=== PATIENT | female | born 1985 | race Caucasian/White ===

== ENCOUNTER 2017-07-07 10:59 | Inpatient (IN) | payer MEDICAID ==
[2017-07-07] MEDS ORDERED: Sodium Chloride 0.9% 10 ML Syringe FLUSH PRN (11:33)
[2017-07-07] MEDS ORDERED: Ondansetron 4 MG/2 ML SDV IVPUSH PRN ×2 (11:33→12:38)
[2017-07-07] MEDS ORDERED: Nalbuphine 20 MG/1 ML Amp IVPUSH PRN (11:33)
--- NOTE | 2017-07-07 11:33 | PCM.LDHP ---
L&D History of Present Illness - General Date of Service: 07/07/17 Admit Problem/Dx: Admission Diagnosis/Problem Admission Diagnosis/Problem Source of Information: Patient History Limitations: Reports: No Limitations - History of Present Illness Introduction:: 32-year-old 014 TOSHIA 07/02/17 now at 40 weeks and 5 days estimated gestational age GBS negative history of ruptured membranes at home and [place] at approximately 0 8:30 are time (09:30 there time) brought to labor and delivery by ambulance. Having irregular contractions. Blood type A positive antibody screen negative rubella negative (needs MMR ) nonreactive hepatitis B surface antigen and HIV normal limited GC negative hemoglobin 11.4 on 03/18/17 platelets 181,001 hour OB glucose screen 83 antibody screen negative Patient's history complicated by previous mesh surgery for hernia repair performed through the laparoscope. Improves with: Reports: None Worsens with: Reports: None Associated Symptoms: Reports: N Past Medical History : 6 Para: 4 ([id number]) H&P Review of Systems - Review of Systems: Review Of Systems: See Below General: Reports: No Symptoms HEENT: Reports: No Symptoms Pulmonary: Reports: No Symptoms Cardiovascular: Reports: No Symptoms Gastrointestinal: Reports: No Symptoms Genitourinary: Reports: No Symptoms Musculoskeletal: Reports: No Symptoms Skin: Reports: No Symptoms Psychiatric: Reports: No Symptoms Neurological: Reports: No Symptoms Hematologic/Lymphatic: Reports: No Symptoms Immunologic: Reports: No Symptoms L&D Exam - Exam Exam: See Below - OB Specific Fundal Height In cm: 38 Contraction Duration (sec): Irregular Contraction Frequency (min): Irregular Contraction Intensity: Mild Movement: Active Heart Tones: Present Heart Tones per Min: 130 Heart Rate (FHR) Variability: Moderate (6-25 bmp) Presentation: Vertex - Post Score Post Score Cervix Position: Posterior Post Score Consistency: Soft Post Score Effacement: 31-50% Post Score Dilation: 1-2 cm Post Score 's Station: -2 Post Score Total: 5 - Exam General: Alert, Oriented HEENT: Conjunctiva Clear, Mucosa Moist & [place], PERRLA Neck: Supple, Trachea Midline Lungs: Clear to Auscultation, Normal Respiratory Effort Cardiovascular: Regular Rate, Regular Rhythm GI/Abdominal Exam: Normal Bowel Sounds, Soft, Non-Tender, No Organomegaly, No Distention, No Abnormal Bruit, No Mass, Pelvis Stable Genitourinary: Normal external exam, Normal bimanual exam, Normal speculum exam Extremities: Normal Inspection, Normal Range of Motion, Non-Tender, No Pedal Edema, Normal Capillary Refill Skin: Warm, Dry, Intact Psychiatric: Alert, Normal Affect, Normal Mood - Problem List (1) 40 weeks gestation of SNOMED Code(s): 10128827 ICD Code: Z3A.40 - 40 WEEKS GESTATION OF Status: Acute Current Visit: Yes (2) Premature rupture of membranes (PROM) affecting sixth SNOMED Code(s): 14626574, 826622849 ICD Code: O42.90 - LEILA ROM, 7TH0 BETW RUPT & ONST LABR, UNSP WEEKS OF GEST; O09.40 - SUPERVISION OF W GRAND MULTIPARITY, UNSP TRIMESTER Status: Acute Current Visit: Yes (3) History of umbilical hernia repair SNOMED Code(s): 833780025 ICD Code: Z98.890 - OTHER SPECIFIED POSTPROCEDURAL STATES; Z87.19 - PERSONAL HISTORY OF OTHER DISEASES OF THE DIGESTIVE SYSTEM Status: Acute Current Visit: Yes Problem List Initiated/Reviewed/Updated: No Assessment/Plan Comment:: Plan labor and delivery
[2017-07-07] MEDS ORDERED: fentaNYL 100 MCG/2 ML SDV EPIDUR PRN (12:38)
[2017-07-07] MEDS ORDERED: ePHEDrine 50 MG/ML SDV IVPUSH PRN (12:38)
[2017-07-07] MEDS ORDERED: diphenhydrAMINE 50 MG/ML SDV IVPUSH PRN (12:38)
--- NOTE | 2017-07-07 12:44 | PCM.PREANE ---
Preanesthetic Assessment - Procedure Proposed Procedure: Labor Epidural - Anesthesia/Transfusion/Family Hx Anesthesia History: Prior Anesthesia Without Reaction Family History of Anesthesia Reaction: No Transfusion History: No Prior Transfusion(s) Additional History: scoliosis - Review of Systems General: No Symptoms Pulmonary: No Symptoms Cardiovascular: Other Neurological: No Symptoms Other: Reports: Easy Bruising, Depression, Anxiety - Physical Assessment NPO Status Date: 07/06/17 NPO Status Time: 20:00 Respiratory Rate: 16 Vital Signs: Last Vital Signs Temp 36.3 C 07/07/17 11:34 Pulse Resp 16 07/07/17 11:34 BP 127/74 07/07/17 11:34 Pulse Ox Height: 1.65 m Weight: 82.554 kg ASA Class: 2 Mental Status: Alert & Oriented x3 Airway Class: Mallampati = 2 Dentition: Reports: Normal Dentition Thyro-Mental Finger Breadths: 3 Mouth Opening Finger Breadths: 3 ROM/Head Extension: Full Lungs: Clear to Auscultation, Normal Respiratory Effort Cardiovascular: Regular Rate, Regular Rhythm - Lab Values: Laboratory Last Values WBC 6.86 K/mm3 (3.98-10.04) 07/07/17 11:37 RBC 3.88 M/mm3 (3.98-5.22) L 07/07/17 11:37 Hgb 10.7 gm/L (11.2-15.7) L 07/07/17 11:37 Hct 32.6 % (34.1-44.9) L 07/07/17 11:37 MCV 84.0 fl (79.4-94.8) 07/07/17 11:37 MCH 27.6 pg (25.6-32.2) 07/07/17 11:37 MCHC 32.8 g/dl (32.2-35.5) 07/07/17 11:37 RDW Std Deviation 43.0 fL (36.4-46.3) 07/07/17 11:37 Plt Count 153 K/mm3 (182-369) L 07/07/17 11:37 MPV 10.1 fl (9.4-12.3) 07/07/17 11:37 Neut % (Auto) 72.2 % (34.0-71.1) H 07/07/17 11:37 Lymph % (Auto) 19.2 % (19.3-51.7) L 07/07/17 11:37 [place] % (Auto) 8.2 % (4.7-12.5) 07/07/17 11:37 Eos % (Auto) 0.3 (0.7-5.8) L 07/07/17 11:37 Baso % (Auto) 0.0 % (0.1-1.2) L 07/07/17 11:37 Neut # (Auto) 4.95 K/mm3 (1.56-6.13) 07/07/17 11:37 Lymph # (Auto) 1.32 K/mm3 (1.18-3.74) 07/07/17 11:37 [place] # (Auto) 0.56 K/mm3 (0.24-0.36) H 07/07/17 11:37 Eos # (Auto) 0.02 K/mm3 (0.04-0.36) L 07/07/17 11:37 Baso # (Auto) 0.00 K/mm3 (0.01-0.08) L 07/07/17 11:37 Blood Type A POSITIVE 07/07/17 11:37 Gel Antibody Screen Negative 07/07/17 11:37 - Allergies Allergies/Adverse Reactions: Allergies Allergy/AdvReac Type Severity Reaction Status Date / Time Penicillins Allergy Rash Verified 07/07/17 11:57 - Blood Blood Available: No Product(s) Available: None - Anesthesia Plan Pre-Op Medication Ordered: None - Acknowledgements Anesthesia Type Planned: Epidural Pt an Appropriate Candidate for the Planned Anesthesia: Yes Alternatives and Risks of Anesthesia Discussed w Pt/Guardian: Yes Pt/Guardian Understands and Agrees with Anesthesia Plan: Yes PreAnesthesia Questionnaire SYSTEMS MANAGER History: Reports: , Spontaneous Musculoskeletal History: Reports: Arthritis, Other (See Below) Psychiatric History: Reports: Anxiety, Depression Other Psychiatric History: has been on depression meds in the past but doesn't remember what. none recently. hx of suicide attempt when she was a teenager - Past Surgical History GI Surgical History: Reports: Hernia Repair/Other Other GI Surgeries/Procedures: abdominal hernia repair with mesh Other Musculoskeletal Surgeries/Procedures:: scoliosis - SUBSTANCE USE Smoking Status *Q: Former Smoker Tobacco Use Within Last Twelve Months: Cigarettes Second Hand Smoke Exposure: No Recreational Drug Use History: No - HOME MEDS Home Medications: Home Meds Docusate Sodium 100 mg PO BID PRN 07/07/17 [History] Fcg895/FA/Omega3/Dha/Fish Oil [ Gummies] 1 each PO DAILY 07/07/17 [ History] - CURRENT (IN HOUSE) MEDS Current Meds: Current Medications Lactated Ringer's (Ringers, Lactated) 1,000 mls @ 100 mls/hr IV ASDIRECTED KRYSTLE Nalbuphine HCl (Nubain) 10 mg IVPUSH Q2H PRN PRN Reason: Pain (moderate 4-6) Ondansetron HCl (Zofran) 4 mg IVPUSH Q4H PRN PRN Reason: Nausea/Vomiting Sodium Chloride (Saline Flush) 10 ml FLUSH ASDIRECTED PRN PRN Reason: Keep Vein Open
[2017-07-07] MEDS ORDERED: Bupivacaine/fentaNYL/NS 100 ML Bag EPIDUR SCH (12:45)
[2017-07-07] MEDS: Lactated Ringers 1,000 ML IV SCH ×2 (13:00→14:07)
[2017-07-07] MEDS ORDERED: Oxytocin 10 Units/1 ML SDV ONE (14:01)
[2017-07-07] MEDS ORDERED: Oxytocin/Lactated Ringers 10 UNIT/1,000 ML BAG IV ONE (14:02)
[2017-07-07] MEDS ORDERED: Oxytocin 10 Units/1 ML SDV IV ONE (14:09)
[2017-07-07] MEDS ORDERED: Oxytocin/Lactated Ringers 10 UNIT/1,000 ML BAG IV SCH (14:15)
--- NOTE | 2017-07-07 14:58 | PCM.DEL ---
L & D Note - General Info Date of Service: 07/07/17 Mother's Due Date: 07/02/17 - Delivery Note Labor: Spontaneous Delivery Outcome: Livebirth (Male liveborn Saturday07/07/17 at 1440 hrs. YOANA Apgars 8/9 weight 30/6/60 grams 8 pounds 1.1 ounce nuchal cord 1 reduced over the head) Presentation: Left Occiput Anterior (YOANA) Nuchal Cord: Present (Times one reduced over the head) Prep: Povidone-Iodine (Betadine Anesthesia Type: None Amniotic Fluid Description: Clear Episiotomy Type: None Laceration: 1st Degree Suture type: Other (3-0 Monocryl) Suture size: 3-0 Placenta: Intact, Spontaneous (intact, [place], eccentric cord insertion) Cord: 3 Vessels Estimated Blood Loss: 250 [place]: Suctioned, Bulb Syringe, Stimulated, Warmed, [place] Used, Warmer Used Provider: Chun Michelle Score 1 min: 8 Score 5 min: 9 - Patient Data Vitals - Most Recent: Last Vital Signs Temp 97.4 F 07/07/17 11:34 Pulse Resp 16 07/07/17 12:47 BP 127/74 07/07/17 11:34 Pulse Ox Weight - Most Recent: 182 lb Lab Results Last 24 Hours: Laboratory Results - last 24 hr 07/07/17 07/07/17 Range/Units 11:37 11:37 WBC 6.86 (3.98-10.04) K/mm3 RBC 3.88 L (3.98-5.22) M/mm3 Hgb 10.7 L (11.2-15.7) gm/L Hct 32.6 L (34.1-44.9) % MCV 84.0 (79.4-94.8) fl MCH 27.6 (25.6-32.2) pg MCHC 32.8 (32.2-35.5) g/dl RDW Std Deviation 43.0 (36.4-46.3) fL Plt Count 153 L (182-369) K/mm3 MPV 10.1 (9.4-12.3) fl Neut % (Auto) 72.2 H (34.0-71.1) % Lymph % (Auto) 19.2 L (19.3-51.7) % [place] % (Auto) 8.2 (4.7-12.5) % Eos % (Auto) 0.3 L (0.7-5.8) Baso % (Auto) 0.0 L (0.1-1.2) % Neut # (Auto) 4.95 (1.56-6.13) K/mm3 Lymph # (Auto) 1.32 (1.18-3.74) K/mm3 [place] # (Auto) 0.56 H (0.24-0.36) K/mm3 Eos # (Auto) 0.02 L (0.04-0.36) K/mm3 Baso # (Auto) 0.00 L (0.01-0.08) K/mm3 Blood Type A POSITIVE Gel Antibody Screen Negative Med Orders - Current: Current Medications Diphenhydramine HCl (Benadryl) 25 mg IVPUSH Q6H PRN PRN Reason: Pruritis Ephedrine Sulfate (Ephedrine Sulfate) 5 mg IVPUSH ASDIRECTED PRN PRN Reason: Hypotension Fentanyl (Sublimaze) 100 mcg EPIDUR Q3H PRN PRN Reason: Pain Last Admin: 07/07/17 13:09 Dose: 100 mcg Fentanyl/Bupivacaine HCl (Fentanyl/Bupivacaine/Ns 2 Mcg-0.125% 100 Ml) 100 ml EPIDUR ASDIRECTED [facility] Last Admin: 07/07/17 13:09 Dose: 100 ml Lactated Ringer's (Ringers, Lactated) 1,000 mls @ 100 mls/hr IV ASDIRECTED [facility] Last Admin: 07/07/17 14:07 Dose: 100 mls/hr Oxytocin/Lactated Ringer's (Pitocin In Lr 10 Units/1,000 Ml) 10 unit in 1,000 mls @ 500 mls/hr IV ASDIRECTED [facility] Nalbuphine HCl (Nubain) 10 mg IVPUSH Q2H PRN PRN Reason: Pain (moderate 4-6) Ondansetron HCl (Zofran) 4 mg IVPUSH Q4H PRN PRN Reason: Nausea/Vomiting Ondansetron HCl (Zofran) 4 mg IVPUSH ONETIME PRN PRN Reason: Nausea/Vomiting Sodium Chloride (Saline Flush) 10 ml FLUSH ASDIRECTED PRN PRN Reason: Keep Vein Open Discontinued Medications Oxytocin/Lactated Ringer's (Pitocin In Lr 10 Units/1,000 Ml) Confirm Administered Dose 10 unit in 1,000 mls @ as directed IV .STK-MED ONE Stop: 07/07/17 14:03 Oxytocin (Pitocin) Confirm Administered Dose 10 unit .ROUTE .STK-MED ONE Stop: 07/07/17 14:02 Oxytocin (Pitocin) 10 unit IV ONETIME ONE Stop: 07/07/17 14:10 - Problem List & Annotations (1) 40 weeks gestation of SNOMED Code(s): 60997248 Code(s): Z3A.40 - 40 WEEKS GESTATION OF Status: Acute Current Visit: Yes (2) Premature rupture of membranes (PROM) affecting sixth SNOMED Code(s): 11814160, 672271865 Code(s): O42.90 - LEILA ROM, 7TH0 BETW RUPT & ONST LABR, UNSP WEEKS OF GEST; O09.40 - SUPERVISION OF W GRAND MULTIPARITY, UNSP TRIMESTER Status: Acute Current Visit: Yes (3) History of umbilical hernia repair SNOMED Code(s): 892937515 Code(s): Z98.890 - OTHER SPECIFIED POSTPROCEDURAL STATES; Z87.19 - PERSONAL HISTORY OF OTHER DISEASES OF THE DIGESTIVE SYSTEM Status: Acute Current Visit: Yes (4) Nuchal cord, delivered, current hospitalization SNOMED Code(s): 615300219, 769058044 Code(s): O69.81X0 - LABOR AND DEL COMP BY CORD AROUND NECK, W/O COMPRSN, UNSP Status: Acute Current Visit: Yes (5) First degree perineal laceration, delivered, current hospitalization SNOMED Code(s): 457981665 Code(s): O70.0 - FIRST DEGREE PERINEAL LACERATION DURING DELIVERY Status: Acute Current Visit: Yes - Problem List Review Problem List Initiated/Reviewed/Updated: No - My Orders Last 24 Hours: My Active Orders 07/07/17 11:33 Nalbuphine [Nubain] 10 mg IVPUSH Q2H PRN Ondansetron [Zofran] 4 mg IVPUSH Q4H PRN Sodium Chloride 0.9% [Saline Flush] 10 ml FLUSH ASDIRECTED PRN Resuscitation Status Routine 07/07/17 11:34 Patient Status [ADT] Routine Activity as Tolerated [RC] PFP Communication Order [RC] ASDIRECTED Notify Provider [RC] PFP Notify Provider [RC] PRN Peripheral IV Care [RC] . DIRECTED Vital Signs [RC] PER UNIT ROUTINE Electronic Heart Tones Ext w TOCO [WOMSER] Routine Electronic Heart Tones Internal [WOMSER] Per Unit Routine Peripheral IV Insertion Adult [OM.PC] Routine 07/07/17 11:37 PATIENT RETYPE [BBK] Stat TYPE AND SCREEN [BBK] Stat 07/07/17 11:45 Lactated Ringers [Ringers, Lactated] 1,000 ml IV ASDIRECTED 07/07/17 14:15 Oxytocin/Lactated Ringers [Pitocin in LR 10 Units/1,000 ML] 10 unit in 1,000 ml IV ASDIRECTED 07/07/17 Lunch Clear Liquid Diet [DIET] - Plan Plan:: Plan labor and delivery
[2017-07-07] MEDS ORDERED: Bupivacaine 0.25% 10 ML SDV ONE (15:02)
[2017-07-07] MEDS ORDERED: Acetaminophen 325 MG Tab PO PRN (15:02)
[2017-07-07] MEDS ORDERED: Lanolin 100% Cream 7 GM Tube TOP PRN (15:02)
[2017-07-07] MEDS ORDERED: Witch Hazel Medicated Pads 100/Jar TOP PRN (15:02)
[2017-07-07] MEDS ORDERED: Benzocaine/Menthol 20%-0.5% Spray 56 GM Canister TOP PRN (15:02)
[2017-07-07] MEDS ORDERED: Docusate Sodium 100 MG Cap PO PRN (15:02)
[2017-07-07] MEDS: Ibuprofen 600 MG Tab PO PRN (22:19)
[2017-07-08] MEDS: Ibuprofen 600 MG Tab PO PRN (07:04)
--- NOTE | 2017-07-08 08:12 | PCM.DCSUM1 ---
Discharge Summary - Hospital Course Free Text/Narrative:: [facility] LIVE L/D Delivery Note Patient Name: ADIN DURHAM Date of : 85 Patient Status: Inpatient Attending Provider: Chun Michelle Date: 07/07/17 14:55 Initialization Date: 07/07/17 14:55 L & D Note - General Info Date of Service: 07/07/17 Mother's Due Date: 07/02/17 - Delivery Note Labor: Spontaneous Delivery Outcome: Livebirth (Male liveborn Saturday07/07/17 at 1440 hrs. YOANA Apgars 8/9 weight 30/6/60 grams 8 pounds 1.1 ounce nuchal cord 1 reduced over the head) Presentation: Left Occiput Anterior (YOANA) Nuchal Cord: Present (Times one reduced over the head) Prep: Povidone-Iodine (Betadine Anesthesia Type: None Amniotic Fluid Description: Clear Episiotomy Type: None Laceration: 1st Degree Suture type: Other (3-0 Monocryl) Suture size: 3-0 Placenta: Intact, Spontaneous (intact, [place], eccentric cord insertion) Cord: 3 Vessels Estimated Blood Loss: 250 [place]: Suctioned, Bulb Syringe, Stimulated, Warmed, [place] Used, Warmer Used Provider: Chun Michelle Score 1 min: 8 Score 5 min: 9 - Patient Data Vitals - Most Recent: Last Vital Signs Temp 97.4 F 07/07/17 11:34 Pulse Resp 16 07/07/17 12:47 BP 127/74 07/07/17 11:34 Pulse Ox Weight - Most Recent: 182 lb Lab Results Last 24 Hours: Laboratory Results - last 24 hr 07/07/17 07/07/17 Range/Units 11:37 11:37 WBC 6.86 (3.98-10.04) K/mm3 RBC 3.88 L (3.98-5.22) M/mm3 Hgb 10.7 L (11.2-15.7) gm/L Hct 32.6 L (34.1-44.9) % MCV 84.0 (79.4-94.8) fl MCH 27.6 (25.6-32.2) pg MCHC 32.8 (32.2-35.5) g/dl RDW Std Deviation 43.0 (36.4-46.3) fL Plt Count 153 L (182-369) K/mm3 MPV 10.1 (9.4-12.3) fl Neut % (Auto) 72.2 H (34.0-71.1) % Lymph % (Auto) 19.2 L (19.3-51.7) % [place] % (Auto) 8.2 (4.7-12.5) % Eos % (Auto) 0.3 L (0.7-5.8) Baso % (Auto) 0.0 L (0.1-1.2) % Neut # (Auto) 4.95 (1.56-6.13) K/mm3 Lymph # (Auto) 1.32 (1.18-3.74) K/mm3 [place] # (Auto) 0.56 H (0.24-0.36) K/mm3 Eos # (Auto) 0.02 L (0.04-0.36) K/mm3 Baso # (Auto) 0.00 L (0.01-0.08) K/mm3 Blood Type A POSITIVE Gel Antibody Screen Negative Med Orders - Current: Current Medications Diphenhydramine HCl (Benadryl) 25 mg IVPUSH Q6H PRN PRN Reason: Pruritis Ephedrine Sulfate (Ephedrine Sulfate) 5 mg IVPUSH ASDIRECTED PRN PRN Reason: Hypotension Fentanyl (Sublimaze) 100 mcg EPIDUR Q3H PRN PRN Reason: Pain Last Admin: 07/07/17 13:09 Dose: 100 mcg Fentanyl/Bupivacaine HCl (Fentanyl/Bupivacaine/Ns 2 Mcg-0.125% 100 Ml) 100 ml EPIDUR ASDIRECTED [facility]RY[facility] Last Admin: 07/07/17 13:09 Dose: 100 ml Lactated Ringer's (Ringers, Lactated) 1,000 mls @ 100 mls/hr IV ASDIRECTED [facility] Last Admin: 07/07/17 14:07 Dose: 100 mls/hr Oxytocin/Lactated Ringer's (Pitocin In Lr 10 Units/1,000 Ml) 10 unit in 1,000 mls @ 500 mls/hr IV ASDIRECTED KRYSTLE Nalbuphine HCl (Nubain) 10 mg IVPUSH Q2H PRN PRN Reason: Pain (moderate 4-6) Ondansetron HCl (Zofran) 4 mg IVPUSH Q4H PRN PRN Reason: Nausea/Vomiting Ondansetron HCl (Zofran) 4 mg IVPUSH ONETIME PRN PRN Reason: Nausea/Vomiting Sodium Chloride (Saline Flush) 10 ml FLUSH ASDIRECTED PRN PRN Reason: Keep Vein Open Discontinued Medications Oxytocin/Lactated Ringer's (Pitocin In Lr 10 Units/1,000 Ml) Confirm Administered Dose 10 unit in 1,000 mls @ as directed IV .STK-MED ONE Stop: 07/07/17 14:03 Oxytocin (Pitocin) Confirm Administered Dose 10 unit .ROUTE .STK-MED ONE Stop: 07/07/17 14:02 Oxytocin (Pitocin) 10 unit IV ONETIME ONE Stop: 07/07/17 14:10 - Problem List & Annotations (1) 40 weeks gestation of SNOMED Code(s): 41275686 Code(s): Z3A.40 - 40 WEEKS GESTATION OF Status: Acute Current Visit: Yes (2) Premature rupture of membranes (PROM) affecting sixth SNOMED Code(s): 30586945, 778588290 Code(s): O42.90 - LEILA ROM, 7TH0 BETW RUPT & ONST LABR, UNSP WEEKS OF GEST; O09.40 - SUPERVISION OF W GRAND MULTIPARITY, UNSP TRIMESTER Status: Acute Current Visit: Yes (3) History of umbilical hernia repair SNOMED Code(s): 621904248 Code(s): Z98.890 - OTHER SPECIFIED POSTPROCEDURAL STATES; Z87.19 - PERSONAL HISTORY OF OTHER DISEASES OF THE DIGESTIVE SYSTEM Status: Acute Current Visit: Yes (4) Nuchal cord, delivered, current hospitalization SNOMED Code(s): 430449500, 683142220 Code(s): O69.81X0 - LABOR AND DEL COMP BY CORD AROUND NECK, W/O COMPRSN, UNSP Status: Acute Current Visit: Yes (5) First degree perineal laceration, delivered, current hospitalization SNOMED Code(s): 571994006 Code(s): O70.0 - FIRST DEGREE PERINEAL LACERATION DURING DELIVERY Status: Acute Current Visit: Yes - Problem List Review Problem List Initiated/Reviewed/Updated: No - My Orders Last 24 Hours: My Active Orders 07/07/17 11:33 Nalbuphine [Nubain] 10 mg IVPUSH Q2H PRN Ondansetron [Zofran] 4 mg IVPUSH Q4H PRN Sodium Chloride 0.9% [Saline Flush] 10 ml FLUSH ASDIRECTED PRN Resuscitation Status Routine 07/07/17 11:34 Patient Status [ADT] Routine Activity as Tolerated [RC] PFP Communication Order [RC] ASDIRECTED Notify Provider [RC] PFP Notify Provider [RC] PRN Peripheral IV Care [RC] . DIRECTED Vital Signs [RC] PER UNIT ROUTINE Electronic Heart Tones Ext w TOCO [WOMSER] Routine Electronic Heart Tones Internal [WOMSER] Per Unit Routine Peripheral IV Insertion Adult [OM.PC] Routine 07/07/17 11:37 PATIENT RETYPE [BBK] Stat TYPE AND SCREEN [BBK] Stat 07/07/17 11:45 Lactated Ringers [Ringers, Lactated] 1,000 ml IV ASDIRECTED 07/07/17 14:15 Oxytocin/Lactated Ringers [Pitocin in LR 10 Units/1,000 ML] 10 unit in 1,000 ml IV ASDIRECTED 07/07/17 Lunch Clear Liquid Diet [DIET] - Plan Plan:: Plan labor and delivery HPI Initial Comments: [facility] LIVE L/D Delivery Note Patient Name: ADIN DURHAM Date of : 85 Patient Status: Inpatient Attending Provider: Chun Michelle Date: 07/07/17 14:55 Initialization Date: 07/07/17 14:55 L & D Note - General Info Date of Service: 07/07/17 Mother's Due Date: 07/02/17 - Delivery Note Labor: Spontaneous Delivery Outcome: Livebirth (Male liveborn Saturday07/07/17 at 1440 hrs. YOANA Apgars 8/9 weight 30/6/60 grams 8 pounds 1.1 ounce nuchal cord 1 reduced over the head) Presentation: Left Occiput Anterior (YOANA) Nuchal Cord: Present (Times one reduced over the head) Prep: Povidone-Iodine (Betadine Anesthesia Type: None Amniotic Fluid Description: Clear Episiotomy Type: None Laceration: 1st Degree Suture type: Other (3-0 Monocryl) Suture size: 3-0 Placenta: Intact, Spontaneous (intact, [place], eccentric cord insertion) Cord: 3 Vessels Estimated Blood Loss: 250 : Suctioned, Bulb Syringe, Stimulated, Warmed, [place] Used, Warmer Used Provider: Chun Michelle Score 1 min: 8 Score 5 min: 9 - Patient Data Vitals - Most Recent: Last Vital Signs Temp 97.4 F 07/07/17 11:34 Pulse Resp 16 07/07/17 12:47 BP 127/74 07/07/17 11:34 Pulse Ox Weight - Most Recent: 182 lb Lab Results Last 24 Hours: Laboratory Results - last 24 hr 07/07/17 07/07/17 Range/Units 11:37 11:37 WBC 6.86 (3.98-10.04) K/mm3 RBC 3.88 L (3.98-5.22) M/mm3 Hgb 10.7 L (11.2-15.7) gm/L Hct 32.6 L (34.1-44.9) % MCV 84.0 (79.4-94.8) fl MCH 27.6 (25.6-32.2) pg MCHC 32.8 (32.2-35.5) g/dl RDW Std Deviation 43.0 (36.4-46.3) fL Plt Count 153 L (182-369) K/mm3 MPV 10.1 (9.4-12.3) fl Neut % (Auto) 72.2 H (34.0-71.1) % Lymph % (Auto) 19.2 L (19.3-51.7) % [place] % (Auto) 8.2 (4.7-12.5) % Eos % (Auto) 0.3 L (0.7-5.8) Baso % (Auto) 0.0 L (0.1-1.2) % Neut # (Auto) 4.95 (1.56-6.13) K/mm3 Lymph # (Auto) 1.32 (1.18-3.74) K/mm3 [place] # (Auto) 0.56 H (0.24-0.36) K/mm3 Eos # (Auto) 0.02 L (0.04-0.36) K/mm3 Baso # (Auto) 0.00 L (0.01-0.08) K/mm3 Blood Type A POSITIVE Gel Antibody Screen Negative Med Orders - Current: Current Medications Diphenhydramine HCl (Benadryl) 25 mg IVPUSH Q6H PRN PRN Reason: Pruritis Ephedrine Sulfate (Ephedrine Sulfate) 5 mg IVPUSH ASDIRECTED PRN PRN Reason: Hypotension Fentanyl (Sublimaze) 100 mcg EPIDUR Q3H PRN PRN Reason: Pain Last Admin: 07/07/17 13:09 Dose: 100 mcg Fentanyl/Bupivacaine HCl (Fentanyl/Bupivacaine/Ns 2 Mcg-0.125% 100 Ml) 100 ml EPIDUR ASDIRECTED [facility] Last Admin: 07/07/17 13:09 Dose: 100 ml Lactated Ringer's (Ringers, Lactated) 1,000 mls @ 100 mls/hr IV ASDIRECTED [facility] Last Admin: 07/07/17 14:07 Dose: 100 mls/hr Oxytocin/Lactated Ringer's (Pitocin In Lr 10 Units/1,000 Ml) 10 unit in 1,000 mls @ 500 mls/hr IV ASDIRECTED [facility] Nalbuphine HCl (Nubain) 10 mg IVPUSH Q2H PRN PRN Reason: Pain (moderate 4-6) Ondansetron HCl (Zofran) 4 mg IVPUSH Q4H PRN PRN Reason: Nausea/Vomiting Ondansetron HCl (Zofran) 4 mg IVPUSH ONETIME PRN PRN Reason: Nausea/Vomiting Sodium Chloride (Saline Flush) 10 ml FLUSH ASDIRECTED PRN PRN Reason: Keep Vein Open Discontinued Medications Oxytocin/Lactated Ringer's (Pitocin In Lr 10 Units/1,000 Ml) Confirm Administered Dose 10 unit in 1,000 mls @ as directed IV .STK-MED ONE Stop: 07/07/17 14:03 Oxytocin (Pitocin) Confirm Administered Dose 10 unit .ROUTE .STK-MED ONE Stop: 07/07/17 14:02 Oxytocin (Pitocin) 10 unit IV ONETIME ONE Stop: 07/07/17 14:10 - Problem List & Annotations (1) 40 weeks gestation of SNOMED Code(s): 85550702 Code(s): Z3A.40 - 40 WEEKS GESTATION OF Status: Acute Current Visit: Yes (2) Premature rupture of membranes (PROM) affecting sixth SNOMED Code(s): 25223366, 064664519 Code(s): O42.90 - LEILA ROM, 7TH0 BETW RUPT & ONST LABR, UNSP WEEKS OF GEST; O09.40 - SUPERVISION OF W GRAND MULTIPARITY, UNSP TRIMESTER Status: Acute Current Visit: Yes (3) History of umbilical hernia repair SNOMED Code(s): 978066964 Code(s): Z98.890 - OTHER SPECIFIED POSTPROCEDURAL STATES; Z87.19 - PERSONAL HISTORY OF OTHER DISEASES OF THE DIGESTIVE SYSTEM Status: Acute Current Visit: Yes (4) Nuchal cord, delivered, current hospitalization SNOMED Code(s): 337590788, 407335161 Code(s): O69.81X0 - LABOR AND DEL COMP BY CORD AROUND NECK, W/O COMPRSN, UNSP Status: Acute Current Visit: Yes (5) First degree perineal laceration, delivered, current hospitalization SNOMED Code(s): 955810626 Code(s): O70.0 - FIRST DEGREE PERINEAL LACERATION DURING DELIVERY Status: Acute Current Visit: Yes - Problem List Review Problem List Initiated/Reviewed/Updated: No - My Orders Last 24 Hours: My Active Orders 07/07/17 11:33 Nalbuphine [Nubain] 10 mg IVPUSH Q2H PRN Ondansetron [Zofran] 4 mg IVPUSH Q4H PRN Sodium Chloride 0.9% [Saline Flush] 10 ml FLUSH ASDIRECTED PRN Resuscitation Status Routine 07/07/17 11:34 Patient Status [ADT] Routine Activity as Tolerated [RC] PFP Communication Order [RC] ASDIRECTED Notify Provider [RC] PFP Notify Provider [RC] PRN Peripheral IV Care [RC] . DIRECTED Vital Signs [RC] PER UNIT ROUTINE Electronic Heart Tones Ext w TOCO [WOMSER] Routine Electronic Heart Tones Internal [WOMSER] Per Unit Routine Peripheral IV Insertion Adult [OM.PC] Routine 07/07/17 11:37 PATIENT RETYPE [BBK] Stat TYPE AND SCREEN [BBK] Stat 07/07/17 11:45 Lactated Ringers [Ringers, Lactated] 1,000 ml IV ASDIRECTED 07/07/17 14:15 Oxytocin/Lactated Ringers [Pitocin in LR 10 Units/1,000 ML] 10 unit in 1,000 ml IV ASDIRECTED 07/07/17 Lunch Clear Liquid Diet [DIET] - Plan Plan:: Plan labor and delivery Brief History: [facility] LIVE . L/D Delivery Note. Patient Name: Prashant DURHAM Record Number: [id number]. Date of : Patient Status: Inpatient. Attending Provider: Chun Michelle Number: [id number]. Date: 07/07/17 14:55Initialization Date: 07/07/17 14:55. L & D Note. - General Info. Date of Service: 07/07/17. Mother's Due Date: 07/02/17. - Delivery Note. Labor: Spontaneous. Delivery Outcome: Livebirth ( Male liveborn Saturday07/07/17 at 1440 hrs. YOANA Apgars 8/9 weight 30/6/60 grams 8 pounds 1.1 ounce nuchal cord 1 reduced over the head). Presentation: Left Occiput Anterior (YOANA). Nuchal Cord: Present (Times one reduced over the head). Prep: Povidone-Iodine (Betadine. Anesthesia Type: None. Amniotic Fluid Description: Clear. Episiotomy Type: None. Laceration: 1st Degree. Suture type: Other (3-0 Monocryl). Suture size: 3-0. Placenta: Intact, Spontaneous (intact, [place], eccentric cord insertion). Cord: 3 Vessels. Estimated Blood Loss: 250. [place]: Suctioned, Bulb Syringe, Stimulated, Warmed , [place] Used, Warmer Used. Provider: Chun Michelle. Score 1 min: 8. Score 5 min: 9. - Patient Data. Vitals - Most Recent: Last Vital Signs. Temp 97.4 F 07/07/17 11:34. Pulse. Resp 16 07/07/17 12: 47. BP 127/74 07/07/17 11:34. Pulse Ox. Weight - Most Recent: 182 lb. Lab Results Last 24 Hours: Laboratory Results - last 24 hr. 07/07/1708/Range/ Units. 11:3711:37. WBC 6.86 (3.98-10.04) K/mm3. RBC 3.88 L (3.98-5.22) M/ mm3. Hgb 10.7 L (11.2-15.7) gm/L. Hct 32.6 L (34.1-44.9) %. MCV 84.0 (79.4- 94.8) fl. MCH 27.6 (25.6-32.2) pg. MCHC 32.8 (32.2-35.5) g/dl. RDW Std Deviation 43.0 (36.4-46.3) fL. Plt Count 153 L (182-369) K/mm3. MPV 10.1 ( 9.4-12.3) fl. Neut % (Auto) 72.2 H (34.0-71.1) %. Lymph % (Auto) 19.2 L ( 19.3-51.7) %. [place] % (Auto) 8.2 (4.7-12.5) %. Eos % (Auto) 0.3 L (0.7-5.8). Baso % (Auto) 0.0 L (0.1-1.2) %. Neut # (Auto) 4.95 (1.56-6.13) K/mm3. Lymph # (Auto) 1.32 (1.18-3.74) K/mm3. [place] # (Auto) 0.56 H (0.24-0.36) K/ mm3. Eos # (Auto) 0.02 L (0.04-0.36) K/mm3. Baso # (Auto) 0.00 L (0.01-0.08) K/mm3. Blood Type A POSITIVE. Gel Antibody Screen Negative. Med Orders - Current: Current Medications. Diphenhydramine HCl (Benadryl) 25 mg IVPUSH Q6H PRN. PRN Reason: Pruritis. Ephedrine Sulfate (Ephedrine Sulfate) 5 mg IVPUSH ASDIRECTED PRN. PRN Reason: Hypotension. Fentanyl (Sublimaze) 100 mcg EPIDUR Q3H PRN. PRN Reason: Pain. Last Admin: 07/07/17 13:09 Dose: 100 mcg. Fentanyl/Bupivacaine HCl (Fentanyl/Bupivacaine/Ns 2 Mcg-0.125% 100 Ml) 100 ml EPIDUR ASDIRECTED [facility]. Last Admin: 07/07/17 13:09 Dose: 100 ml. Lactated Ringer's (Ringers, Lactated) 1,000 mls @ 100 mls/hr IV ASDIRECTED [facility]. Last Admin: 07/07/17 14:07 Dose: 100 mls/hr. Oxytocin/Lactated Ringer's (Pitocin In Lr 10 Units/1,000 Ml) 10 unit in 1,000 mls @ 500 mls/hr IV ASDIRECTED [facility]. Nalbuphine HCl (Nubain) 10 mg IVPUSH Q2H PRN. PRN Reason: Pain (moderate 4-6) . Ondansetron HCl (Zofran) 4 mg IVPUSH Q4H PRN. PRN Reason: Nausea/Vomiting. Ondansetron HCl (Zofran) 4 mg IVPUSH ONETIME PRN. PRN Reason: Nausea/ Vomiting. Sodium Chloride (Saline Flush) 10 ml FLUSH ASDIRECTED PRN. PRN Reason: Keep Vein Open. Discontinued Medications. Oxytocin/Lactated Ringer's ( Pitocin In Lr 10 Units/1,000 Ml) Confirm Administered Dose 10 unit in 1,000 mls @ as directed IV .STK-MED ONE. Stop: 07/07/17 14:03. Oxytocin (Pitocin) Confirm Administered Dose 10 unit .ROUTE .STK-MED ONE. Stop: 07/07/17 14:02. Oxytocin (Pitocin) 10 unit IV ONETIME ONE. Stop: 07/07/17 14:10. - Problem List & Annotations. (1) 40 weeks gestation of . SNOMED Code(s): 95492699. Code(s): Z3A.40 - 40 WEEKS GESTATION OF Status: Acute Current Visit: Yes. (2) Premature rupture of membranes (PROM) affecting sixth . SNOMED Code(s): 16537036, 856181775. Code(s): O42.90 - LEILA ROM, 7TH0 BETW RUPT & ONST LABR, UNSP WEEKS OF GEST; O09.40 - SUPERVISION OF W GRAND MULTIPARITY, UNSP TRIMESTER Status: Acute Current Visit: Yes. (3) History of umbilical hernia repair. SNOMED Code(s): 978827392. Code( s): Z98.890 - OTHER SPECIFIED POSTPROCEDURAL STATES; Z87.19 - PERSONAL HISTORY OF OTHER DISEASES OF THE DIGESTIVE SYSTEM Status: Acute Current Visit: Yes. (4) Nuchal cord, delivered, current hospitalization. SNOMED Code(s): 946127052, 402741484. Code(s): O69.81X0 - LABOR AND DEL COMP BY CORD AROUND NECK, W/O COMPRSN, UNSP Status: Acute Current Visit: Yes. (5) First degree perineal laceration, delivered, current hospitalization. SNOMED Code(s): 073523802. Code(s): O70.0 - FIRST DEGREE PERINEAL LACERATION DURING DELIVERY Status: Acute Current Visit: Yes. - Problem List Review. Problem List Initiated/Reviewed/Updated: No. - My Orders. Last 24 Hours: My Active Orders. 07/07/17 11:33. Nalbuphine [Nubain] 10 mg IVPUSH Q2H PRN. Ondansetron [Zofran] 4 mg IVPUSH Q4H PRN. Sodium Chloride 0.9% [Saline Flush ] 10 ml FLUSH ASDIRECTED PRN. Resuscitation Status Routine. 07/07/17 11:34. Patient Status [ADT] Routine. Activity as Tolerated [RC] PFP. Communication Order [RC] ASDIRECTED. Notify Provider [RC] PFP. Notify Provider [RC] PRN. Peripheral IV Care [RC] . DIRECTED. Vital Signs [RC] PER UNIT ROUTINE. Electronic Heart Tones Ext w TOCO [WOMSER] Routine. Electronic Heart Tones Internal [WOMSER] Per Unit Routine. Peripheral IV Insertion Adult [ OM.PC] Routine. 07/07/17 11:37. PATIENT RETYPE [BBK] Stat. TYPE AND SCREEN [ BBK] Stat. 07/07/17 11:45. Lactated Ringers [Ringers, Lactated] 1,000 ml IV ASDIRECTED. 07/07/17 14:15. Oxytocin/Lactated Ringers [Pitocin in LR 10 Units/ 1,000 ML] 10 unit in 1,000 ml IV ASDIRECTED. 07/07/17 Lunch. Clear Liquid Diet [DIET]. - Plan. Plan:: Plan labor and delivery - Discharge Data Discharge Date: 07/08/17 Discharge Disposition: Home, Self-Care 01 Preliminary Cause of *Q: Cardiac Arrest (Patient was) Condition: Good - Discharge Diagnosis/Problem(s) (1) 40 weeks gestation of SNOMED Code(s): 50044002 ICD Code: Z3A.40 - 40 WEEKS GESTATION OF Status: Acute Current Visit: Yes (2) Premature rupture of membranes (PROM) affecting sixth SNOMED Code(s): 18539751, 368616870 ICD Code: O42.90 - LEILA ROM, 7TH0 BETW RUPT & ONST LABR, UNSP WEEKS OF GEST; O09.40 - SUPERVISION OF W GRAND MULTIPARITY, UNSP TRIMESTER Status: Acute Current Visit: Yes (3) History of umbilical hernia repair SNOMED Code(s): 540549030 ICD Code: Z98.890 - OTHER SPECIFIED POSTPROCEDURAL STATES; Z87.19 - PERSONAL HISTORY OF OTHER DISEASES OF THE DIGESTIVE SYSTEM Status: Acute Current Visit: Yes (4) Nuchal cord, delivered, current hospitalization SNOMED Code(s): 839651899, 313863352 ICD Code: O69.81X0 - LABOR AND DEL COMP BY CORD AROUND NECK, W/O COMPRSN, UNSP Status: Acute Current Visit: Yes (5) First degree perineal laceration, delivered, current hospitalization SNOMED Code(s): 610439402 ICD Code: O70.0 - FIRST DEGREE PERINEAL LACERATION DURING DELIVERY Status: Acute Current Visit: Yes - Patient Summary/Data Complications: None Consults: None Hospital Course: Uneventful - Patient Instructions Diet: Regular Diet as Tolerated Driving: Do Not Drive (48 hours) Showering/Bathing: May Shower Notify Provider of: Fever, Increased Pain, Swelling and Redness, Drainage, Nausea and/or Vomiting - Discharge Plan Home Medications: Home Meds Docusate Sodium 100 mg PO BID PRN 07/07/17 [History] Prp538/FA/Omega3/Dha/Fish Oil [ Gummies] 1 each PO DAILY 07/07/17 [ History] Acetaminophen [Tylenol] 650 mg PO Q6H PRN #0 tablet 07/08/17 [Rx] Benzocaine/Menthol [Dermoplast Pain [facility] [place]] 1 spray TOP ASDIRECTED PRN #0 canister 07/08/17 [Rx] Docusate Sodium [Colace] 100 mg PO BID PRN #0 cap 07/08/17 [Rx] Ibuprofen [IJD: Ibuprofen] 200 - 600 mg PO Q6H PRN #0 tablet 07/08/17 [Rx] Referrals: Karen Mckenna MD [Primary Care Provider] - - Discharge Summary/Plan Comment DC Time >30 min.: No - Patient Data Vitals - Most Recent: Last Vital Signs Temp 98.8 F 07/08/17 03:38 Pulse 72 07/08/17 03:38 Resp 16 07/08/17 03:38 BP 113/59 L 07/08/17 03:38 Pulse Ox 97 07/08/17 03:38 Weight - Most Recent: 182 lb I&O - Last 24 hours: Intake & Output 07/07/17 07/08/17 07/08/17 22:59 06:59 14:59 Intake Total 240 Balance 240 Lab Results - Last 24 hrs: Laboratory Results - last 24 hr 07/07/17 07/07/17 07/08/17 Range/Units 11:37 11:37 05:32 WBC 6.86 8.24 (3.98-10.04) K/mm3 RBC 3.88 L 3.58 L (3.98-5.22) M/mm3 Hgb 10.7 L 9.9 L (11.2-15.7) gm/L Hct 32.6 L 30.4 L (34.1-44.9) % MCV 84.0 84.9 (79.4-94.8) fl MCH 27.6 27.7 (25.6-32.2) pg MCHC 32.8 32.6 (32.2-35.5) g/dl RDW Std Deviation 43.0 44.4 (36.4-46.3) fL Plt Count 153 L 157 L (182-369) K/mm3 MPV 10.1 11.0 (9.4-12.3) fl Neut % (Auto) 72.2 H 70.6 (34.0-71.1) % Lymph % (Auto) 19.2 L 21.2 (19.3-51.7) % [place] % (Auto) 8.2 7.6 (4.7-12.5) % Eos % (Auto) 0.3 L 0.4 L (0.7-5.8) Baso % (Auto) 0.0 L 0.1 (0.1-1.2) % Neut # (Auto) 4.95 5.81 (1.56-6.13) K/mm3 Lymph # (Auto) 1.32 1.75 (1.18-3.74) K/mm3 [place] # (Auto) 0.56 H 0.63 H (0.24-0.36) K/mm3 Eos # (Auto) 0.02 L 0.03 L (0.04-0.36) K/mm3 Baso # (Auto) 0.00 L 0.01 (0.01-0.08) K/mm3 Blood Type A POSITIVE Gel Antibody Screen Negative Med Orders - Current: Current Medications Acetaminophen (Tylenol) 650 mg PO Q4H PRN PRN Reason: mild pain or fever Benzocaine/Menthol ([facility] [place]) 0 gm TOP ASDIRECTED PRN PRN Reason: Perineal Comfort Measure Last Admin: 07/07/17 15:21 Dose: 1 spray Docusate Sodium (Colace) 100 mg PO BID PRN PRN Reason: Constipation Emollient Ointment (Lansinoh Hpa) 0 gm TOP ASDIRECTED PRN PRN Reason: Sore Nipples Ibuprofen (Motrin) 600 mg PO Q4H PRN PRN Reason: Mild pain or fever Last Admin: 07/08/17 07:04 Dose: 600 mg Prenat Multivit/[place]/Iron/Folic Ac ( Plus Iron) 1 each PO DAILY KRYSTLE Monet Pantoja (Tucks) 1 pad TOP ASDIRECTED PRN PRN Reason: Hemorrhoid pain Last Admin: 07/07/17 15:21 Dose: 1 pad Discontinued Medications Diphenhydramine HCl (Benadryl) 25 mg IVPUSH Q6H PRN PRN Reason: Pruritis Ephedrine Sulfate (Ephedrine Sulfate) 5 mg IVPUSH ASDIRECTED PRN PRN Reason: Hypotension Fentanyl (Sublimaze) 100 mcg EPIDUR Q3H PRN PRN Reason: Pain Last Admin: 07/07/17 13:09 Dose: 100 mcg Fentanyl/Bupivacaine HCl (Fentanyl/Bupivacaine/Ns 2 Mcg-0.125% 100 Ml) 100 ml EPIDUR ASDIRECTED [facility] Last Admin: 07/07/17 13:09 Dose: 100 ml Lactated Ringer's (Ringers, Lactated) 1,000 mls @ 100 mls/hr IV ASDIRECTED [facility] Last Admin: 07/07/17 14:07 Dose: 100 mls/hr Oxytocin/Lactated Ringer's (Pitocin In Lr 10 Units/1,000 Ml) Confirm Administered Dose 10 unit in 1,000 mls @ as directed IV .STK-MED ONE Stop: 07/07/17 14:03 Last Admin: 07/07/17 15:20 Dose: Not Given Oxytocin/Lactated Ringer's (Pitocin In Lr 10 Units/1,000 Ml) 10 unit in 1,000 mls @ 500 mls/hr IV ASDIRECTED [facility] Last Admin: 07/07/17 15:19 Dose: 500 mls/hr Nalbuphine HCl (Nubain) 10 mg IVPUSH Q2H PRN PRN Reason: Pain (moderate 4-6) Ondansetron HCl (Zofran) 4 mg IVPUSH Q4H PRN PRN Reason: Nausea/Vomiting Ondansetron HCl (Zofran) 4 mg IVPUSH ONETIME PRN PRN Reason: Nausea/Vomiting Oxytocin (Pitocin) Confirm Administered Dose 10 unit .ROUTE .STK-MED ONE Stop: 07/07/17 14:02 Last Admin: 07/07/17 15:19 Dose: Not Given Oxytocin (Pitocin) 10 unit IV ONETIME ONE Stop: 07/07/17 14:10 Last Admin: 07/07/17 15:19 Dose: 10 unit Sodium Chloride (Saline Flush) 10 ml FLUSH ASDIRECTED PRN PRN Reason: Keep Vein Open *Q Meaningful Use (DIS) - VTE *Q VTE Criteria *Q: - Stroke *Q Stroke Criteria *Q: - AMI *Q AMI Criteria *Q:
--- NOTE | 2017-07-08 08:37 | PCM48HPAN ---
Post Anesthesia Note - EVALUATION WITHIN 48HRS OF ANESTHETIC Vital Signs in Normal Range: Yes Patient Participated in Evaluation: Yes Respiratory Function Stable: Yes Airway Patent: Yes Cardiovascular Function Stable: Yes Hydration Status Stable: Yes Pain Control Satisfactory: Yes Nausea and Vomiting Control Satisfactory: Yes Mental Status Recovered: Yes
[2017-07-08] MEDS ORDERED: Prenatal Multivitamin with Calcium/Folic Acid/Iron Tab PO SCH (09:00)
[2017-07-08] MEDS ORDERED: Measles, Mumps & Rubella Vaccine 0.5 ML SDV SUBCUT ONE (11:30)
[2017-07-08 12:49] VITALS: BP 111/61
== END 2017-07-08 15:00 | disposition home or self-care (01) | DRG 775 ==
LOC: JD.OB 10:59 → JD.OBCHECK 10:59 → JD.OB 11:34 → OBSVTOIN 14:40
PROVIDERS: ADMIT Obstetrics & Gynecology; ATTEND Obstetrics & Gynecology
PROC: 10E0XZZ Delivery of Products of Conception, External Approach (ICD-10-PCS; principal; 2017-07-07)
PROC: 0HQ9XZZ Repair Perineum Skin, External Approach (ICD-10-PCS; 2017-07-07)
PROC: 00HU33Z Insertion of Infusion Device into Spinal Canal, Percutaneous Approach (ICD-10-PCS; 2017-07-07)
PROC: 3E0R3CZ (ICD-10-PCS; 2017-07-07)
PROC: 3E0234Z Introduction of Serum, Toxoid and Vaccine into Muscle, Percutaneous Approach (ICD-10-PCS; 2017-07-08)
DX: O42.02 Full-term premature rupture of membranes, onset of labor within 24 hours of rupture (principal); O70.0 First degree perineal laceration during delivery; O69.81X0 Labor and delivery complicated by cord around neck, without compression, not applicable or unspecified; Z3A.41 41 weeks gestation of pregnancy; Z37.0 Single live birth; Z23 Encounter for immunization; O99.334 Smoking (tobacco) complicating childbirth
CPT/HCPCS: 01967; 36415; 85025; 86850; 86900; 86901; 90707; A9270-GY; J2590; J3010; J7120